=== PATIENT | male | born 2000 | race Caucasian/White ===

== ENCOUNTER 2020-07-23 06:29 | Emergency (ER) | payer MEDICAID, OTHER ==
[~2020-07-23] VITALS: Ht 175.3 cm; Wt 78.0 kg
[2020-07-23] MEDS ORDERED: LIDODERM 5% PATCH TD ONE ×2 (06:47→07:00)
[2020-07-23] MEDS ORDERED: KETOROLAC 30 MG/1 ML ONE (06:47)
[2020-07-23] MEDS ORDERED: DIAZEPAM 5 MG/ML, 2ML ONE (06:47)
--- NOTE | 2020-07-23 06:52 | NUR ---
pt jose puentes complaining of back pain, started approx 0100 and got worst. pt unable to stand, and has severe pain to right lower back, and right upper leg. PA to bedside and pt medicated. no further orders at this time. report and care to Patricio VAZ.
[2020-07-23] MEDS ORDERED: DIAZEPAM 5 MG TABLET PO ONE (07:00)
[2020-07-23] MEDS ORDERED: DIAZEPAM 5 MG/ML, 2ML IVPush ONE (07:00)
[2020-07-23] MEDS ORDERED: KETOROLAC 30 MG/1 ML IVPush ONE (07:00)
[2020-07-23] MEDS ORDERED: KETOROLAC 30 MG/1 ML IM ONE (07:00)
--- NOTE | 2020-07-23 07:07 | NUR ---
report from kasandra rn
[2020-07-23] MEDS ORDERED: HYDROmorphone 1 MG/ML, 1ML INJ ONE ×2 (07:55→09:05)
--- NOTE | 2020-07-23 07:59 | NUR ---
MEDICATED FOR PAIN, VSS
[2020-07-23] MEDS ORDERED: HYDROmorphone 1 MG/ML, 1ML INJ IV ONE ×2 (08:00→09:30)
--- NOTE | 2020-07-23 08:51 | NUR ---
PT IS SLEEPING, FAMILY PRESENT
--- NOTE | 2020-07-23 09:41 | NUR ---
PT TO MRI
--- NOTE | 2020-07-23 10:30 | NUR ---
PA AT BEDSIDE FOR POC. PT TO BE DC. GIVEN WHEELCHAIR TO ASSIST TO DC AREA
--- NOTE | 2020-07-23 10:49 | NUR ---
Patient given discharge instructions and they have confirmed that they understand the instructions. Patient ambulatory with steady gait.
[2020-07-23 11:04] VITALS: BP 111/59
== END 2020-07-23 11:06 | disposition home or self-care (01) ==
LOC: ED 07:21
DX: M51.16 Intervertebral disc disorders with radiculopathy, lumbar region (principal); M62.830 Muscle spasm of back; M54.5 Low back pain
CPT/HCPCS: 72148; 96374; 96375; 96376; 99284; J1170; J1885; J3360

== ENCOUNTER 2020-09-20 02:48 | Emergency (ER) | payer MEDICAID ==
[~2020-09-20] VITALS: Ht 175.3 cm; Wt 72.0 kg
[2020-09-20] MEDS ORDERED: LORazepam 2 MG/ML, 1ML IVPush ONE (04:00)
[2020-09-20] MEDS ORDERED: SODIUM CHLORIDE FLUSH 10ML SYR IVF ONE (04:00)
[2020-09-20] MEDS ORDERED: KETOROLAC 30 MG/1 ML IVPush ONE (04:00)
[2020-09-20] MEDS ORDERED: HYDROcodone/APAP 5/325 TABLET PO ONE (04:00)
[2020-09-20] MEDS ORDERED: HYDROcodone/APAP 5/325 TABLET ONE (04:01)
[2020-09-20] MEDS ORDERED: KETOROLAC 30 MG/1 ML ONE (04:01)
[2020-09-20] MEDS ORDERED: LORazepam 2 MG/ML, 1ML ONE (04:02)
[2020-09-20 04:45] LABS: MEAN CORPUSCULAR HEMOGLOBIN 31.3 pg (27.5-34.5); MEAN CORPUSCULAR HGB CONC 34.3 g/dL (33.2-36.2); PLATELET COUNT 262 x10^3/uL (130-400); RED BLOOD COUNT 4.72 x10^6/uL (4.38-5.82); RED CELL DISTRIBUTION WIDTH 12.9 % (9.4-14.8)
[2020-09-20 04:57] LABS: ALBUMIN 3.7 g/dL (3.4-5.0); ANION GAP 8 mmol/L (5-15); CALCIUM 8.6 mg/dL (8.5-10.1); CHLORIDE 111 mmol/L (98-107); CREATININE 0.94 mg/dL (0.7-1.3)
[2020-09-20 05:01] LABS: TROPONIN I < 0.015 ng/mL (0.000-0.045)
[2020-09-20 05:45] LABS: BAND#(MANUAL) 1.15 x10^3/uL; BANDS%(MANUAL) 5 % (0-7); LYMPH#(MANUAL) 1.15 x10^3/uL (1-6.1); LYMPHS% (MANUAL) 5 % (22-44); MONOS#(MANUAL) 1.38 x10^3/uL (0.3-2.7); MONOS% (MANUAL) 6 % (2-9); SEG#(MANUAL) 19.32 x10^3/uL (1.8-8); SEGS% (MANUAL) 84 % (42-75)
[2020-09-20 05:46] LABS: <PLATELET ESTIMATE> ADEQUATE; <PLT MORPHOLOGY> NORMAL PLT MORPH; <RBC MORPHOLOGY> NORMAL
[2020-09-20] MEDS ORDERED: POTASSIUM CHLORIDE 20 MEQ TAB.ER.PRT PO ONE (06:00)
[2020-09-20] MEDS ORDERED: POTASSIUM CHLORIDE 20 MEQ TAB.ER.PRT ONE (06:07)
[2020-09-20] MEDS ORDERED: OMNIPAQUE 350 MG/ML, 75ML BOTTLE ONE (06:08)
--- NOTE | 2020-09-20 06:10 | NUR ---
PT SLEEPING, WAKENS EASILY. GRANDMOTHER AT BEDSIDE
--- NOTE | 2020-09-20 06:46 | NUR ---
REPORT FROM MILIND BRITTON
--- NOTE | 2020-09-20 06:46 | NUR ---
REPORT GIVEN TO URIEL VAZ
[2020-09-20 07:00] VITALS: BP 108/70
--- NOTE | 2020-09-20 07:00 | NUR ---
PT SLEEPING ON GURNEY, RESPIRATIONS EVEN AND UNLABORED. ANTONINO AT BS. CALL LIGHT WITHIN REACH. NADN/VSS
[2020-09-20] MEDS ORDERED: DEXAMETHASONE 4 MG/ML, 5ML ONE (07:22)
[2020-09-20] MEDS ORDERED: AZITHROMYCIN 250 MG TABLET ONE (07:23)
[2020-09-20] MEDS ORDERED: AZITHROMYCIN 500 MG TABLET PO/NG ONE (07:30)
[2020-09-20] MEDS ORDERED: DEXAMETHASONE 4 MG/ML, 1ML IVPush ONE (07:30)
[2020-09-20] MEDS ORDERED: CEFTRIAXONE 1,000 MG in DEXTROSE 5% 50 ML IVPB ONE (07:30)
--- NOTE | 2020-09-20 07:49 | NUR ---
Patient/Caregiver given discharge instructions and rx, they have confirmed that they understand the instructions. Patient ambulatory with steady gait.
== END 2020-09-20 07:57 | disposition home or self-care (01) ==
LOC: ED 05:22
DX: R07.89 Other chest pain (principal); R06.00 Dyspnea, unspecified; E87.6 Hypokalemia; D72.829 Elevated white blood cell count, unspecified; Z20.822 Contact with and (suspected) exposure to COVID-19; J45.909 Unspecified asthma, uncomplicated; F17.210 Nicotine dependence, cigarettes, uncomplicated
CPT/HCPCS: 36415; 71045; 71275; 80048; 82040; 84484; 85025; 85379; 93005; 96365; 96375; 99285; 99406; J0696; J1100; J1885; J2060; Q9967; U0003; U0005